=== PATIENT | male | born 1990 | race Caucasian/White ===

== ENCOUNTER 2017-07-19 09:11 | Emergency (ER) | payer OTHER ==
[~2017-07-19] VITALS: Ht 180.3 cm; Wt 79.4 kg
--- NOTE | 2017-07-19 09:22 | ER Report ---
History and Physical Time Seen By MD: 09:18 HPI/ROS CHIEF COMPLAINT: Postop wound check HISTORY OF PRESENT ILLNESS: 27-year-old male comes emergency Department 7 days after having an anterior cruciate ligament repair patella tendon graft 2nd repair to that knee comes in today with concerning about the way the wound looks he thinks it may have dehisced is concerned about infection patient has denies any trauma to the knee since then dressed yesterday took a look at it was concerned from the ER is not contacted the surgeon at this time. REVIEW OF SYSTEMS: Respiratory: No cough, no dyspnea. Cardiovascular: No chest pain, no palpitations. Gastrointestinal: No vomiting, no abdominal pain. Musculoskeletal: Left knee evaluation wound check Remainder of the 14 system rev: Yes Reviewed Nurses Notes: Yes Old Medical Records Reviewed: Yes Physical Exam General appearance: Alert no distress. Respiratory: Chest is non tender, lungs are clear to auscultation. Cardiac: Regular rate and rhythm [ ] Left knee examination patient's knee does demonstrate postoperative changes including bruising and ecchymosis decreased range of motion wound is evaluated there is a elevated and partially early dehisced surgical postoperative wound with closure no obvious overt sign of infection neurovascularly intact otherwise unremarkable DIFFERENTIAL DIAGNOSIS: After history and physical exam differential diagnosis was considered for wound check wound infection dehiscence Medical Decision Making ED Course/Re-evaluation ED Course Clinical course medical decision-making evaluation does not show obvious overt sign of infection we'll start him on antibiotics prophylactically he did ask for pain medication concerned that he has been on numerous pain medications did not return to his doctor will give him 1 day and possibly 2 days worth he does admit to taking too much due to his history and his resistance to them we will go ahead and prescribed just 2 days worth advised to return to his primary care surgeon for refills and to follow-up as scheduled in the next couple of days we dressed and and about and she'll be prescribed Decision to Disposition Date: Jul 19, 2017 Decision to Disposition Time: 09:21 Depart Departure Impression: Primary Impression: Visit for wound check Condition: Improved Disposition: HOME OR SELF-CARE Patient Instructions: Wound Dehiscence (DC) Additional Instructions: Follow-up with orthopedic surgeon NURIA MITCHELL MD Jul 19, 2017 09:22
[2017-07-19 09:30] VITALS: BP 137/92
== END 2017-07-19 09:29 | disposition home or self-care (01) ==
LOC: ER 09:18 → MERGE 09:18 → ER 09:29
DX: Z48.00 Encounter for change or removal of nonsurgical wound dressing (principal)
CPT/HCPCS: 99282

== ENCOUNTER 2017-10-13 19:35 | Emergency (ER) | payer OTHER ==
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
[2017-10-13] MEDS ORDERED: ALB6.7R INH (19:42)
[2017-10-13] MEDS ORDERED: ALBUTEROL/IPRATROPIUM 3 ML NEB NEB ONE ×2 (19:50→22:00)
[2017-10-13] MEDS ORDERED: predniSONE 20 MG TAB PO ONE (19:50)
[2017-10-13] MEDS: ALBUTEROL SULFATE 90 MCG/ACT 8.5 GM HNH INH PRN ×3 (20:14→20:18)
--- NOTE | 2017-10-13 20:22 | EKG ---
FACILITY: [facility] PATIENT NAME: RAMÓN COLE : [id number] MR: [id number] V: [id number] EXAM DATE: ORDERING PHYSICIAN: STIVEN GARCIA TECHNOLOGIST: HC Test Reason : SOB Blood Pressure : / mmHG Vent. Rate : 096 BPM Atrial Rate : 096 BPM P-R Int : 152 ms QRS Dur : 076 ms QT Int : 356 ms P-R-T Axes : 073 090 064 degrees QTc Int : 449 ms Sinus rhythm Rightward axis Borderline ECG No previous ECGs available Confirmed by OZ MATUTE ([id number]) on 10/14/2017 5:49:12 AM Referred By: RADHA Confirmed By:OZ MATUTE
--- NOTE | 2017-10-13 20:40 | RADIOLOGY IMAGING REPORT ---
FACILITY: [facility] [place] PATIENT NAME: Teddy Wing : 1990 MR: [id number] V: [id number] EXAM DATE: ORDERING PHYSICIAN: STIVEN GARCIA TECHNOLOGIST: Location: [facility] [place] Patient: Teddy Wing : 1990 Visit/Account:[id number] Date of Sevice: 10/13/2017 TWO VIEW CHEST 10/13/2017 7:47 PM. INDICATION: Shortness of breath. COMPARISON: None. FINDINGS: Lungs are well-expanded. The lungs are clear. No pneumothorax or pleural effusion. Pulmo nary vasculature is unremarkable. Heart size is normal. IMPRESSION: Normal. Report Dictated By: Harman Dorado MD at 10/13/2017 8:35 PM Report E-Signed By: Harman Dorado MD at 10/13/2017 8:36 PM WSN:[id number]
[2017-10-13 20:52] LABS: PLATELET COUNT, AUTOMATED 271 K/uL (150-450)
[2017-10-13] MEDS ORDERED: IOPAMIDOL 76% 75 ML INFUS BTL 75 ML ONE (21:16)
[2017-10-13] MEDS ORDERED: NS 0.9% 25 ML BAG 50 ML ONE (21:17)
--- NOTE | 2017-10-13 21:43 | RADIOLOGY IMAGING REPORT ---
FACILITY: [facility] - [place] PATIENT NAME: Teddy Wing : 1990 MR: [id number] V: [id number] EXAM DATE: ORDERING PHYSICIAN: STIVEN GARCIA TECHNOLOGIST: Location: [facility] Patient: Teddy Wing : 1990 Visit/Account:[id number] Date of Sevice: 10/13/2017 EXAMINATION: CTA of the chest with IV contrast HISTORY: Shortness of breath. TECHNIQUE: Pulmonary embolus protocol - Thin axial CT images of the chest were obtained with IV con trast during maximal pulmonary arterial opacification. Reconstruction of the source data includes mul tiplanar 2D coronal and sagittal reconstructed images, and 3D coronal and sagittal MIP images. Repres entative images have been stored on PACS. One of the following dose optimization techniques was utilized in the performance of this exam: Autom ated exposure control; adjustment of the mA and/or kV according to the patient's size; or use of an i terative reconstruction technique. Specific details can be referenced in the facility's radiology C T exam operational policy. Contrast: 75 mL of IV Isovue-370. COMPARISON: None. FINDINGS: Pulmonary arteries: The pulmonary arteries are well opacified, without suspicious filling defect. Heart, aorta, and great vessels: Normal caliber thoracic aorta, without aneurysm or dissection. Norm al heart size. No pericardial effusion. Lungs and pleura: Mild diffuse bronchial wall thickening, with opacification of several subsegmental bronchial segments in both lungs. The lungs are clear. No focal consolidation. No pleural effusion o r pneumothorax. Mediastinum and chris: Negative. Visualized upper abdomen: Unremarkable. Chest wall: Negative. Bones: Negative. IMPRESSION: 1. No evidence of pulmonary embolism. 2. Diffuse bronchial wall thickening with opacification of several subsegmental bronchial segments in both lungs. Findings may be compatible with bronchitis. No evidence of a focal pneumonia. 3. No other acute findings in the chest. Report Dictated By: César Hobson MD at 10/13/2017 9:33 PM Report E-Signed By: César Hobson MD at 10/13/2017 9:39 PM WSN:[id number]
[2017-10-13] MEDS ORDERED: CEFUROXIME AXETIL 250 MG TAB PO ONE (22:00)
[2017-10-13] MEDS ORDERED: CEFU500T10 PO (22:03)
[2017-10-13] MEDS ORDERED: PRED20TA6 PO (22:03)
[2017-10-13 22:13] VITALS: BP 132/82
== END 2017-10-13 22:20 | disposition home or self-care (01) ==
LOC: ER 19:41
DX: J20.9 Acute bronchitis, unspecified (principal); R09.02 Hypoxemia
CPT/HCPCS: 71046; 71275; 85025; 85379; 93005; 99284; J7512; J7620; Q9967; 82040; 82247; 82310; 82374; 82435; 82565; 82947; 84075; 84132; 84155; 84295; 84450; 84460; 84520

== ENCOUNTER 2017-11-29 06:05 | Emergency (ER) | payer OTHER ==
[~2017-11-29 06:05] MED LIST: ALB6.7R INH; CEFU500T10 PO; PRED20TA6 PO
[2017-11-29] MEDS ORDERED: ALBUTEROL/IPRATROPIUM 3 ML NEB ONE (06:16)
--- NOTE | 2017-11-29 06:16 | ER Report ---
History and Physical Time Seen By MD: 06:16 (ITALO GUPTA MD) HPI/ROS CHIEF COMPLAINT: shortness of breath HISTORY OF PRESENT ILLNESS: This is a 27 year old male. He is having several months of shortness of breath. He has been here last month and was prescribed an inhaler and a steroid and recommended to follow-up with pulmonology at the [facility]. He is coughing. Denies sore throat or runny nose. Has been out of his inhaler for a few months. More difficulty at night and with lying down. Inhaler helps, but thinks that the breathing treatments are more effective. No chest pain, but feels tight. (ITALO GUPTA MD) Allergies: Coded Allergies: Penicillins (Verified Allergy, Unknown, 10/13/17) Home Meds Discontinued Reported Medications Albuterol Sulfate (PROVENTIL HFA) 6.7 Gm Inh, 1-2 PUFF INH 3-4XD Y for SHORTNESS OF BREATH, INH 10/13/17 Discontinued Scripts Cefuroxime Axetil (CEFUROXIME) 500 Mg Tablet, 500 MG PO BID for infection, #20 TAB Prov:STIVEN GARCIA DO 10/13/17 Prednisone (PREDNISONE) 20 Mg Tablet, 40 MG PO QDAY for reduce lung inflammation , #12 Take 2 tablets once daily for 4 days, then 1 tablet daily for 4 days Prov:STIVEN GARCIA DO 10/13/17 Reviewed Nurses Notes: Yes (ITALO GUPTA MD) Hx Smoking: No Smoking Status: Never Smoker Hx Alcohol Use: Yes (ITALO GUPTA MD) Constitutional Vital Sign - Last 24 Hours 11/29/17 11/29/17 11/29/17 11/29/17 06:17 06:20 06:20 06:31 Temp 98.9 Pulse 104 99 101 Resp 18 16 16 B/P (MAP) 118/97 Pulse Ox 78 93 O2 Delivery Room Air Nasal Cannula O2 Flow Rate 3.5 11/29/17 11/29/17 11/29/17 06:35 06:35 06:44 Pulse 106 110 Resp 16 16 Pulse Ox 95 O2 Delivery Nasal Cannula O2 Flow Rate 3.5 (VOLODYMYR HARDY MD) Physical Exam General Appearance: The patient is alert, has no immediate need for airway protection and no current signs of toxicity. Eyes: Pupils equal and round, no injection. ENT: Normal oral mucosa. Moist mucous membranes. Posterior oropharynx with some erythema. Tympanic membranes are normal. Neck: Neck is supple and non tender. Respiratory: Lungs with diffuse respiratory wheezing. Hypoxia and placed on nasal canula. In the 70s on room air, up to 93% on 3 liters nasal canula. Cardiac: Tachycardia, but regular rhythm. Gastrointestinal: Abdomen is soft and non tender, normal bowel sounds. DIFFERENTIAL DIAGNOSIS: After history and physical exam differential diagnosis was considered for shortness of breath including but not limited to pulmonary infectious process, COPD, asthma, pulmonary embolus and congestive heart failure. ([facility]) Medical Decision Making Data Points Result Diagram: 11/29/17 0612 11/29/17 0612 Laboratory Hematology Test 11/29/17 06:12 Red Blood Count 5.20 M/uL (4.00-5.60) Mean Corpuscular Volume 96.5 fL (80.0-96.0) Mean Corpuscular Hemoglobin 34.3 pg (26.0-33.0) Mean Corpuscular Hemoglobin Concent 35.6 g/dL (32.0-36.0) Red Cell Distribution Width 13.7 % (11.5-14.5) Mean Platelet Volume 7.8 fL (7.2-11.1) Neutrophils (%) (Auto) 38.3 % (39.4-72.5) Lymphocytes (%) (Auto) 30.2 % (17.6-49.6) Monocytes (%) (Auto) 11.0 % (4.1-12.4) Eosinophils (%) (Auto) 17.5 % (0.4-6.7) Basophils (%) (Auto) 3.0 % (0.3-1.4) Nucleated RBC Relative Count (auto) 0.1 /100WBC Neutrophils # (Auto) 3.0 K/uL (2.0-7.4) Lymphocytes # (Auto) 2.4 K/uL (1.3-3.6) Monocytes # (Auto) 0.9 K/uL (0.3-1.0) Eosinophils # (Auto) 1.4 K/uL (0.0-0.5) Basophils # (Auto) 0.2 K/uL (0.0-0.1) Nucleated RBC Absolute Count (auto) 0.01 K/uL Peripheral Blood Smear Yes Y/N Sodium Level 142 mmol/L (137-145) Potassium Level 4.4 mmol/L (3.5-5.0) Chloride Level 103 mmol/L (98-107) Carbon Dioxide Level 22 mmol/L (22-30) Blood Urea Nitrogen 9 mg/dl (9-21) Creatinine 1.00 mg/dl (0.66-1.25) Glomerular Filtration Rate Calc > 60.0 Random Glucose 107 mg/dl (75-110) Calcium Level 8.9 mg/dl (8.4-10.2) Total Bilirubin 0.7 mg/dl (0.2-1.3) Aspartate Amino Transf (AST/SGOT) 142 U/L (0-35) Alanine Aminotransferase (ALT/SGPT) 55 U/L (0-56) Alkaline Phosphatase 76 U/L (0-126) Total Protein 8.4 g/dl (6.3-8.2) Albumin 4.9 g/dl (3.5-5.0) Chemistry Test 11/29/17 06:12 White Blood Count 7.9 k/uL (4.5-11.0) Red Blood Count 5.20 M/uL (4.00-5.60) Hemoglobin 17.8 g/dL (14.0-18.0) Hematocrit 50.1 % (42.0-52.0) Mean Corpuscular Volume 96.5 fL (80.0-96.0) Mean Corpuscular Hemoglobin 34.3 pg (26.0-33.0) Mean Corpuscular Hemoglobin Concent 35.6 g/dL (32.0-36.0) Red Cell Distribution Width 13.7 % (11.5-14.5) Platelet Count 244 K/uL (150-450) Mean Platelet Volume 7.8 fL (7.2-11.1) Neutrophils (%) (Auto) 38.3 % (39.4-72.5) Lymphocytes (%) (Auto) 30.2 % (17.6-49.6) Monocytes (%) (Auto) 11.0 % (4.1-12.4) Eosinophils (%) (Auto) 17.5 % (0.4-6.7) Basophils (%) (Auto) 3.0 % (0.3-1.4) Nucleated RBC Relative Count (auto) 0.1 /100WBC Neutrophils # (Auto) 3.0 K/uL (2.0-7.4) Lymphocytes # (Auto) 2.4 K/uL (1.3-3.6) Monocytes # (Auto) 0.9 K/uL (0.3-1.0) Eosinophils # (Auto) 1.4 K/uL (0.0-0.5) Basophils # (Auto) 0.2 K/uL (0.0-0.1) Nucleated RBC Absolute Count (auto) 0.01 K/uL Peripheral Blood Smear Yes Y/N Glomerular Filtration Rate Calc > 60.0 Calcium Level 8.9 mg/dl (8.4-10.2) Total Bilirubin 0.7 mg/dl (0.2-1.3) Aspartate Amino Transf (AST/SGOT) 142 U/L (0-35) Alanine Aminotransferase (ALT/SGPT) 55 U/L (0-56) Alkaline Phosphatase 76 U/L (0-126) Total Protein 8.4 g/dl (6.3-8.2) Albumin 4.9 g/dl (3.5-5.0) (VOLODYMYR HARDY MD) EKG/Imaging Imaging FACILITY: [facility] [place] PATIENT NAME: Teddy Wing : 1990 MR: [id number] V: [id number] EXAM DATE: [id number] ORDERING PHYSICIAN: ITALO GUPTA TECHNOLOGIST: Location: [facility] Patient: Teddy Wing : 1990 Visit/Account:[id number] Date of Sevice: 11/29/2017 CHEST PA AND LAT COMPARISONS: 2 view chest dated October 13, 2017 ADDITIONAL PERTINENT HISTORY: Shortness of breath FINDINGS: Cardiomediastinal silhouette: Negative. Pulmonary vasculature: Negative. Lung luis: Negative. Pleural spaces: Negative. Osseous structures: Negative. Surrounding soft tissues: Negative. IMPRESSION: Normal views of the chest. Report Dictated By: Richar Luong MD at 11/29/2017 7:12 AM Report E-Signed By: Richar Luong MD at 11/29/2017 7:13 AM WSN:[id number] (VOLODYMYR HARDY MD) ED Course/Re-evaluation Clinical Indication for ER IV: IV Access (ITALO GUPTA MD) ED Course Symptoms improved after albuterol nebulizer. Plan at this time will be to discharge home with prescriptions for prednisone, nebulizer, and an albuterol medication. Decision to Disposition Date: Nov 29, 2017 Decision to Disposition Time: 07:25 (VOLODYMYR HARDY MD) Depart Departure Latest Vital Signs Vital Signs Date Time Temp Pulse Resp B/P (MAP) Pulse Ox O2 Delivery O2 Flow Rate FiO2 11/29/17 06:44 110 16 11/29/17 06:35 95 Nasal Cannula 3.5 11/29/17 06:17 98.9 118/97 (VOLODYMYR HARDY MD) Impression: Primary Impression: Reactive airway disease Condition: Improved Disposition: HOME OR SELF-CARE New Scripts No Active Prescriptions or Reported Meds Patient Instructions: Reactive Airways Disease (DC) Problem Qualifiers Primary Impression: Reactive airway disease Asthma severity: moderate Asthma persistence: persistent Asthma complication type: with acute exacerbation Qualified Codes: J45.41 - Moderate persistent asthma with (acute) exacerbation ITALO GUPTA MD Nov 29, 2017 06:16 VOLODYMYR HARDY MD Nov 29, 2017 07:21
[2017-11-29] MEDS ORDERED: methylPREDNIS SUCC 125 MG/2ML IVP ONE (06:20)
[2017-11-29] MEDS ORDERED: ALBUTEROL/IPRATROPIUM 3 ML NEB NEB ONE (06:20)
[2017-11-29] MEDS ORDERED: ALBUTEROL 2.5 MG/3 ML NEB ONE (06:38)
[2017-11-29 06:48] LABS: PLATELET COUNT, AUTOMATED 244 K/uL (150-450)
--- NOTE | 2017-11-29 07:16 | RADIOLOGY IMAGING REPORT ---
FACILITY: [facility] [place] PATIENT NAME: Teddy Wing : 1990 MR: [id number] V: [id number] EXAM DATE: ORDERING PHYSICIAN: ITALO GUPTA TECHNOLOGIST: Location: [facility] Patient: Teddy Wing : 1990 Visit/Account:[id number] Date of Sevice: 11/29/2017 CHEST PA AND LAT COMPARISONS: 2 view chest dated October 13, 2017 ADDITIONAL PERTINENT HISTORY: Shortness of breath FINDINGS: Cardiomediastinal silhouette: Negative. Pulmonary vasculature: Negative. Lung luis: Negative. Pleural spaces: Negative. Osseous structures: Negative. Surrounding soft tissues: Negative. IMPRESSION: Normal views of the chest. Report Dictated By: Richar Luong MD at 11/29/2017 7:12 AM Report E-Signed By: Richar Luong MD at 11/29/2017 7:13 AM WSN:[id number]
[2017-11-29] MEDS ORDERED: ALBUTEROL 8 GM INHALER INH ONE (07:30)
[2017-11-29 07:37] VITALS: BP 126/84
== END 2017-11-29 07:42 | disposition home or self-care (01) ==
LOC: ER 06:07
DX: J45.41 Moderate persistent asthma with (acute) exacerbation (principal)
CPT/HCPCS: 71046; 85025; 94640; 96374; 99283; J2930; J3535; 82040; 82247; 82310; 82374; 82435; 82565; 82947; 84075; 84132; 84155; 84295; 84450; 84460; 84520

== ENCOUNTER 2017-12-28 10:41 | Emergency (ER) | payer OTHER ==
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
[2017-12-28] MEDS ORDERED: KETOROLAC 60 MG/2 ML VIAL IM ONE (11:05)
[2017-12-28 12:09] VITALS: BP 149/95
--- NOTE | 2017-12-28 12:41 | RADIOLOGY IMAGING REPORT ---
FACILITY: [facility] PATIENT NAME: Teddy Wing : 1990 MR: [id number] V: [id number] EXAM DATE: ORDERING PHYSICIAN: FRANKLYN BLACKMAN TECHNOLOGIST: Location: [facility] Patient: Teddy Wing : 1990 Visit/Account:[id number] Date of Sevice: 12/28/2017 KNEE 4 VIEW LEFT Indication: Left knee pain. No known trauma. Comparison: None available Findings: 4 views of the left knee. No acute fracture. On the sunrise view there is widening of the medial self llofemoral compartment without bony abnormality. No indication of dislocation. Status post ACL recons truction. There is a tiny calcific density adjacent to the lateral tibial eminence which could repres ent a small loose body. No bony lesions. A prominent joint effusion is present. Soft tissues are othe rwise unremarkable. IMPRESSION: 1. No discrete fracture. 2. Prominent joint effusion. 3. Mild widening of the medial patellofemoral compartment. Unsure if this is chronic or acute soft ti ssue injury to the retinaculum. 4. Possible tiny loose body in the joint. Report Dictated By: Sammy Shultz at 12/28/2017 12:33 PM Report E-Signed By: Sammy Shultz at 12/28/2017 12:37 PM WSN:[id number]
[2017-12-28] MEDS ORDERED: KET10 PO (12:46)
== END 2017-12-28 13:07 | disposition home or self-care (01) ==
LOC: ER 10:43
DX: S83.92XA Sprain of unspecified site of left knee, initial encounter (principal); X58.XXXA Exposure to other specified factors, initial encounter
CPT/HCPCS: 73564; 96372; 99283; J1885; L1830